=== PATIENT | female | born 2005 | race Caucasian/White ===

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

== ENCOUNTER 2024-09-08 10:40 | Emergency (ER) | payer MEDICAID ==
[2024-09-08] MEDS ORDERED: Naloxone 0.4 MG/ML SDV IVPUSH PRN (11:43)
[2024-09-08 11:52] LABS: BASOPHILS ABSOLUTE AUTO 0.04 K/uL (0.00-0.10); BASOPHILS PERCENT AUTO 0.6 % (0.1-1.3); EOSINOPHILS ABSOLUTE AUTO 0.05 K/uL (0.00-0.40); EOSINOPHILS PERCENT AUTO 0.8 % (0.0-5.4); HEMATOCRIT 38.5 % (34.3-46.0); HEMOGLOBIN 12.6 g/dL (11.2-15.5); IMMATURE GRAN PERCENT AUTO 0.2 % (0.0-0.7); LYMPHOCYTES ABSOLUTE AUTO 2.01 K/uL (0.8-3.3); LYMPHOCYTES PERCENT AUTO 32.6 % (11.4-47.7); MEAN CORPUSCULAR HEMOGLOBIN 28.4 pg (31.6-35.5); MEAN CORPUSCULAR HGB CONC 32.7 g/dL (31.6-35.5); MEAN CORPUSCULAR VOLUME 86.9 fL (81.4-99.0); MONOCYTES ABSOLUTE AUTO 0.44 K/uL (0.20-0.90); MONOCYTES PERCENT AUTO 7.1 % (3.3-12.6); NEUTROPHILS ABSOLUTE AUTO 3.62 K/uL (1.0-7.6); NEUTROPHILS PERCENT AUTO 58.7 % (40.0-78.1); PLATELET COUNT,PLT 256 K/uL (130-375); RED BLOOD CELL COUNT 4.43 M/uL (3.77-5.24); WHITE BLOOD CELL COUNT,WBC 6.2 K/uL (3.2-11.0)
[2024-09-08 11:53] LABS: BASE EXCESS VENOUS -0.1 mm/L; BICARBONATE,VENOUS 23.4 mmol/L; METHEMOGLOBIN 0.8 %; O2 SATURATION VENOUS 83.6; OXYHEMOGLOBIN 81.3 %; PCO2 VENOUS 36.2 mm/Hg; PH,VENOUS 7.427 (7.350-7.450); PO2 VENOUS 47.8 mm/Hg; TOTAL HEMOGLOBIN 13.3 g/dL (12.0-16.0)
[2024-09-08 11:55] LABS: IMMATURE GRAN ABSOLUTE AUTO 0.01 K/uL (0.00-0.23)
[2024-09-08] MEDS: Sodium Chloride 0.9% 1,000 ML IV SCH (11:57)
[2024-09-08] MEDS: HYDROmorphone 0.5 MG/0.5 ML Syringe IVPUSH ONE (11:59)
[2024-09-08] MEDS: Prochlorperazine 10 MG/2 ML SDV IVPUSH ONE (11:59)
[2024-09-08] MEDS ORDERED: Sodium Chloride 0.9% 10 ML SDV FLUSH ONE (12:24)
[2024-09-08] MEDS ORDERED: Iopamidol 612 MG/ML 100 ML Bottle IV PRN (12:24)
[2024-09-08 12:28] LABS: C-REACTIVE PROTEIN 1.08 mg/dL (<0.50); CALCIUM 8.9 mg/dL (8.5-10.1); CREATININE 0.7 mg/dL (0.6-1.0); EST CRCL DRUG DOSING (CG) 120.01 mL/min; POTASSIUM,K 4.4 mmol/L (3.6-5.2)
[2024-09-08 12:29] LABS: ANION GAP 15.4 mmol/L (5.0-14.0)
[2024-09-08] MEDS ORDERED: Sodium Chloride 0.9% 100 ML IV SCH (12:30)
[2024-09-08 12:47] LABS: APPEARANCE,URINE CLEAR (CLEAR); BILIRUBIN,URINE NEGATIVE (NEGATIVE); COLOR,URINE YELLOW (YELLOW); GLUCOSE,URINE NEGATIVE (NEGATIVE); KETONES,URINE NEGATIVE (NEGATIVE); LEUKOCYTE ESTERASE,URINE NEGATIVE (NEGATIVE); NITRITE,URINE NEGATIVE (NEGATIVE); OCCULT BLOOD,URINE NEGATIVE (NEGATIVE); PROTEIN,URINE NEGATIVE (NEGATIVE); UROBILINOGEN,URINE 0.2 EU/dL (0.2-1.0)
[2024-09-08 12:58] LABS: AMORPHOUS SEDIMENT,URINE NOT SEEN; BACTERIA,URINE NOT SEEN; EPITHELIAL CELLS,URINE FEW; MUCUS,URINE FEW; RBC,URINE 0-5 (0-5); WBC,URINE 0-5 (0-5)
== END 2024-09-08 13:28 | disposition home or self-care (01) ==
LOC: JP.ED 10:40
DX: J01.40 Acute pansinusitis, unspecified (principal); Z86.16 Personal history of COVID-19; Z79.899 Other long term (current) drug therapy
CPT/HCPCS: 36415; 70486; 70486-26; 74177; 74177-26; 80048; 81001; 82803; 83605; 85025; 86140; 96361; 96374; 96375; 99283; 99284-25; J0780; J1171; J7030